=== PATIENT | female | born 2000 | race Two or more races ===

== ENCOUNTER 2023-01-22 21:43 | Inpatient (IN) | payer OTHER, MEDICAID ==
[~2023-01-22] VITALS: Ht 165.1 cm; Wt 28.4 kg
[2023-01-22 22:01] VITALS: PULSE 124; RESP 14; O2SAT 100
[2023-01-22] MEDS ORDERED: LORazepam 2MG/ML-1ML VIAL IV ONE (22:30)
[2023-01-22] MEDS ORDERED: levETIRAcetam 500 MG/5ML INJ IV ONE (22:54)
[2023-01-22 23:37] LABS: Urine Bacteria MOD /hpf (None Seen); Urine Blood Negative /uL (Negative); Urine Hyaline Cast FEW /lpf (0 - 2); Urine Specific Gravity 1.017 (1.001-1.035); Urine WBC 10 /hpf (0 - 5)
[2023-01-22 23:39] LABS: Basophils # (auto) 0 10 ^3/uL (0-0.2); Basophils % (auto) 0.5 % (0.0-2.0); Eosinophils # (auto) 0 10 ^3/uL (0-0.8); Eosinophils % (auto) 0.3 % (0.0-7.0); Hematocrit 41.1 % (36.0-46.0); Hemoglobin 13.8 g/dL (12.2-16.2); Lymphocytes % (auto) 10.1 % (10.0-50.0); Mean Corpuscular Hemoglobin 31.3 pg (28.0-32.0); Mean Corpuscular Hgb Conc. 33.7 g/dL (32.0-36.0); Mean Corpuscular Volume 92.9 fL (80.0-100.0); Monocytes # (auto) 0.5 10 ^3/uL (0-1.3); Neutrophils # (auto) 8.3 10 ^3/uL (1.6-8.6); Neutrophils % (auto) 84.1 % (37.0-80.0); Red Blood Cells 4.42 10^6/uL (4.0-5.20); Red Cell Distribution Width 12.6 % (11.8-14.3); White Blood Cell 9.8 10^3/uL (4.4-10.8)
[2023-01-22 23:46] LABS: Amphetamine Screen, Urine NEGATIVE (NEGATIVE); Barbiturate Scree,Urine NEGATIVE (NEGATIVE); Benzodiazephine Screen, Urine NEGATIVE (NEGATIVE); Cannabinoid Screen, Urine NEGATIVE (NEGATIVE); Cocaine Screen, Urine NEGATIVE (NEGATIVE); Opiate Scree,Urine NEGATIVE (NEGATIVE); Phencyclidine Screen, Urine NEGATIVE (NEGATIVE)
[2023-01-22 23:58] LABS: Alanine Aminotransferase 18 U/L (13-56); Albumin 3.9 g/dL (3.4-5.0); Anion Gap 5 (5-15); Blood Alcohol < 3.0 mg/dL (<10); Blood Urea Nitrogen 7 mg/dL (7-18); Calcium 8.9 mg/dL (8.5-10.1); Carbon Dioxide 25 mmol/L (21-32); Chloride 111 mmol/L (98-107); Glucose 117 mg/dL (74-106); Potassium 3.6 mmol/L (3.5-5.1); Sodium 141 mmol/L (136-145)
[2023-01-23 00:01] LABS: Alkaline Phosphatase 103 U/L (45-117); Aspartate Aminotransferase 15 U/L (15-37); BUN/Creatinine Ratio 9.7 (10.0-20.0); Bilirubin, Total 0.1 mg/dL (0.2-1.0); GFR African American 133 mL/min; GFR Non-African American 110 mL/min; Total Protein 7.8 g/dL (6.4-8.2)
[2023-01-23] MEDS ORDERED: SODIUM CHLORIDE 0.9% 2,000 ML IV ONE (00:30)
[2023-01-23] MEDS ORDERED: cefTRIAXone 1GM/50ML D5W 50 ML IV ONE (01:00)
[2023-01-23] MEDS ORDERED: LORazepam 2MG/ML-1ML VIAL IV PRN ×3 (02:15→10:00)
[2023-01-23] MEDS ORDERED: ONDANSETRON HCL 4 MG/2 ML VIAL IV PRN (02:15)
[2023-01-23] MEDS ORDERED: cefTRIAXone 1GM/50ML D5W 50 ML IV SCH (09:00)
[2023-01-23 09:03] VITALS: PULSE 88; RESP 19; O2SAT 100
[2023-01-23] MEDS ORDERED: FOLI-119 PO (09:50)
[2023-01-23] MEDS ORDERED: PANTOPRAZOLE 40 MG TAB PO SCH (10:00)
[2023-01-23] MEDS ORDERED: lamoTRIgine 100 MG TAB PO SCH (10:00)
[2023-01-23] MEDS ORDERED: FLUoxetine HCL 20 MG CAP PO SCH (10:00)
[2023-01-23] MEDS ORDERED: OXcarbazepine 300 MG TAB PO SCH ×2 (10:00→22:00)
[2023-01-23 10:32] VITALS: BP 109/54; PULSE 91; RESP 16; TEMP 97.7; O2SAT 95
[2023-01-23 13:00] VITALS: BP 109/54; PULSE 91; RESP 16; TEMP 97.7; O2SAT 95
[2023-01-23] MEDS ORDERED: LAMO100T44 PO (13:14)
[2023-01-23] MEDS ORDERED: FLUO20CA90 PO (14:36)
[2023-01-23] MEDS ORDERED: LAM100T PO (14:36)
[2023-01-23] MEDS ORDERED: AUG875T PO (14:36)
[2023-01-23 14:50] VITALS: O2SAT 100
[2023-01-23 16:25] VITALS: BP 109/54; PULSE 91; RESP 16; TEMP 97.7; O2SAT 95
== END 2023-01-23 18:06 | disposition home or self-care (01) | DRG 53 ==
LOC: ER 21:43 → EDBD 21:43 → OVERFLOW 01-23 02:16 → CENTRAL 01-23 10:58
PROVIDERS: ADMIT Internal Medicine; ATTEND Student in an Organized Health Care Education/Training Program
DX: G40.401 Other generalized epilepsy and epileptic syndromes, not intractable, with status epilepticus (principal); F32.A Depression, unspecified; N39.0 Urinary tract infection, site not specified; Z91.148 Patient's other noncompliance with medication regimen for other reason; Z79.899 Other long term (current) drug therapy
CPT/HCPCS: 36415; 70450; 70551; 71045; 80053; 80307; 80320; 81001; 82140; 83605; 84443; 84702; 85025; 95819; 96365; 96366; 96367; 96375; G0378; J0696; J7060